=== PATIENT | female | born 1965 | race Caucasian/White ===

== ENCOUNTER → 2021-06-28 13:38 | Outpatient (CLI) | payer OTHER, SELFPAY ==
--- NOTE | ~2021-06-28 | MM_ITS ---
EXAMINATION: MM screening [facility] BI w nathan HISTORY: Screening mammogram TECHNIQUE: Craniocaudal and mediolateral oblique 3-D tomosynthesis images were obtained and synthetic 2-D images were generated. CAD analysis was submitted and interpreted. COMPARISON: No prior mammogram is available for comparison at this institution. BREAST PARENCHYMAL COMPOSITION: There are scattered areas of fibroglandular density. FINDINGS: There is no evidence of suspicious mass, calcification, or architectural distortion to sugg est malignancy in either breast. There has been no suspicious interval change. IMPRESSION: 1. No mammographic evidence of malignancy. 2. Recommend routine screening mammography in one year. BI-RADS Category 1: Negative Reviewed, dictated and finalized at location A. K TAPER
== END ==
PROVIDERS: PCP Physician Assistant; Visit Provider Physician Assistant
DX: Z12.31 Encounter for screening mammogram for malignant neoplasm of breast (principal)
CPT/HCPCS: 77063; 77067

== ENCOUNTER → 2022-03-29 15:09 | Outpatient (CLI) | payer OTHER, SELFPAY ==
--- NOTE | ~2022-03-29 | XR_ITS ---
[[id number] ] INDICATION: Rib pain TECHNIQUE: Frontal projection of the upper ribs, frontal projection of the lower ribs, oblique projec tion of all the ribs, frontal inspiratory chest x-ray for interpretation. FINDINGS: There are no soft tissue abnormality seen. There is linear atelectasis left mid lung. There is an acute left sixth rib fracture. IMPRESSION: 1: Acute left sixth rib fracture. 2: Subsegmental atelectasis left midlung. Reviewed, dictated and finalized at location A.
== END ==
PROVIDERS: PCP Physician Assistant; Visit Provider Physician Assistant
DX: R07.81 Pleurodynia (principal); S22.32XA Fracture of one rib, left side, initial encounter for closed fracture; J98.11 Atelectasis
CPT/HCPCS: 71111

== ENCOUNTER 2022-03-31 18:13 | Emergency (ER) | payer OTHER, SELFPAY ==
--- NOTE | ~2022-03-31 | XR_ITS ---
XR chest 2V 03/31/2022 18:47 Indication: Hemoptysis Procedure: PA and lateral views of the chest Comparison: No prior studies for comparison. Findings: Heart size normal. There is subsegmental atelectasis/scarring in the mid and lower lungs. N o focal pneumonia, edema, pleural effusion or pneumothorax. Impression: 1: Subsegmental atelectasis/scarring in the mid and lower lungs. Reviewed, dictated and finalized at location A. Impression: 1: Subsegmental atelectasis/scarring in the mid and lower lungs.
--- NOTE | ~2022-03-31 | CT_ITS ---
EXAMINATION: CTA chest PE protocol DATE: 03/31/2022 21:03 CDT INDICATION: Hemoptysis. TECHNIQUE: Computed tomographic angiography (CTA) of the chest was performed with 100 mL Omnipaque-35 0 intravenous contrast. The dose-length product was 470.67 mGy-cm. Maximum intensity projection 3D-re constructions of the aorta and other arteries were constructed by the technologist on a separate work station. COMPARISON: Chest x-ray dated. FINDINGS: Study is technically adequate without evidence for pulmonary embolism. Heart size normal. N o evidence for aortic aneurysm. Small hiatal hernia. No significant pleural or pericardial effusion. There is right paratracheal lymphadenopathy measuring 1 cm. Mildly prominent prevascular space lymph nodes. No endobronchial lesions. There are reticulonodular densities in the right lower lobe, suspici ous for infection. The largest nodule measures 7 mm, image 72. There is bilateral lower lobe atelecta sis. There are left renal cysts. IMPRESSION: 1. Reticulonodular densities of the right lower lobe with some areas of tree-in-bud configuration, mo st likely infectious. Largest discrete nodule measures 7 mm. Recommend follow-up CT in 6-8 weeks foll owing appropriate therapy to assess for resolution. 2: Mediastinal lymphadenopathy, most likely reactive. Reviewed, dictated and finalized at location A. IMPRESSION: 1. Reticulonodular densities of the right lower lobe with some areas of tree-in -bud configuration, most likely infectious. Largest discrete nodule measures 7 mm. Recommend follow-up CT in 6-8 weeks following appropriate therapy to assess for resolution. 2: Mediastinal lymphadenopathy, most likely reactive.
[2022-03-31 18:14] VITALS: BP 142/73; PULSE 85; RESP 16; TEMP 36.3; O2SAT 97
--- NOTE | 2022-03-31 18:48 | ED.GENADULT ---
HPI - General Adult General Chief complaint: Unspecified Stated complaint: rib fx. coughing up blood Time Seen by Provider: 03/31/22 18:21 Source: patient and RN notes reviewed Mode of arrival: ambulatory Limitations: no limitations History of Present Illness HPI narrative: This is a 56 year old female who presents for evaluation of hemoptysis. She accidentally fell onto her left side after tripping on a curb. She has been having left rib pain since her fall, so her PCP ordered outpatient rib series 2 days ago. She was found to have 1 left rib fracture. She has been taking ibuprofen and naproxen during the day for her pain , and she takes tramadol at night. Last night, she noticed what looked like blood tinged mucus when she coughed. She thought it was due to red cough drop. Today she has seen speckles of dark brown in her sputum, so she was told to come to ER. She denies shortness of breath, fever, chills, nausea or vomiting. She does not take any blood thinners. She denies epistaxis or blood in her nasal discharge. Related Data Allergies Allergy/AdvReac Type Severity Reaction Status Date / Time No Known Allergies Allergy Mild Verified 11/08/07 20:09 [facility] Past Medical History Medical History (Updated 03/31/22 @ 21:26 by Bhumika Torres MD) Anxiety Hypertension Surgical History Surgical History (Updated 03/31/22 @ 21:23 by Bhumika Torres MD) No pertinent past surgical history Social History Social History (Updated 03/31/22 @ 21:24 by Bhumika Torres MD) Smoking status: Never smoker Exam Narrative: GENERAL: Well-appearing, well-nourished, and in no acute distress. HEAD: Normocephalic, atraumatic EYES: PERRLA and EOMI, conjunctiva clear without discharge NOSE: Nares turbinates edematous , but no epistaxis THROAT:Mucous membranes moist, Oropharynx normal without erythema, exudate, peritonsillar swelling or fluctuance NECK: Supple, without lymphadenopathy or mass RESPIRATORY: No respiratory distress, Airway patent, Respirations non-labored, Clear to auscultation without rales, rhonchi or wheeze; left lateral chest wall tenderness HEART: Regular rate and rhythm. No murmur heard. Normal peripheral pulses. ABDOMEN: Soft, nontender, nondistended, normal active bowel sounds. No masses. No rebound or guarding, No organomegaly. EXTREMITIES: No edema, normal strength with full range of motion. SKIN: Warm, dry, normal color without rash NEURO: Alert and oriented x3. CN 2-12 grossly intact. No focal deficits. PSYCH: Normal mood and affect. Course Reevaluation(s) Reevaluation #1: Patient's CT shows infection so will start antibiotics. Patient is stable for discharge. Date: 03/31/22 Time: 21:24 Vital Signs Vital signs: Vital Signs Temperature 97.4 F L 03/31/22 18:14 Pulse Rate 85 03/31/22 18:14 Respiratory Rate 16 03/31/22 18:14 Blood Pressure 142/73 H 03/31/22 18:14 Pulse Oximetry 97 03/31/22 18:14 Oxygen Delivery Room Air 03/31/22 18:14 Temperature 97.4 F L 03/31/22 18:14 Pulse Rate 85 03/31/22 18:14 Respiratory Rate 16 03/31/22 18:14 Blood Pressure 142/73 H 03/31/22 18:14 Pulse Oximetry 97 03/31/22 18:14 Oxygen Delivery Room Air 03/31/22 18:14 Medical Decision Making Vital Signs Vital Signs: Vital Signs Temperature 97.4 F L 03/31/22 18:14 Pulse Rate 85 03/31/22 18:14 Respiratory Rate 16 03/31/22 18:14 Blood Pressure 142/73 H 03/31/22 18:14 Pulse Oximetry 97 03/31/22 18:14 Oxygen Delivery Room Air 03/31/22 18:14 Temperature 97.4 F L 03/31/22 18:14 Pulse Rate 85 03/31/22 18:14 Respiratory Rate 16 03/31/22 18:14 Blood Pressure 142/73 H 03/31/22 18:14 Pulse Oximetry 97 03/31/22 18:14 Oxygen Delivery Room Air 03/31/22 18:14 Lab Data Lab results reviewed: Yes I reviewed the patient's lab results. Result diagrams: 03/31/22 18:52 03/31/22 18:52 Labs: Lab Resu
[2022-03-31 19:02] LABS: Basophils Absolute Auto 0.1 K/mm3 (0.0-0.1); Basophils Percent Auto 0.7 % (0.2-1.2); Eosinophils Absolute Auto 0.3 K/mm3 (0-0.3); Eosinophils Percent Auto 3.4 % (0-4.4); Hematocrit 41.5 % (37.0-47.0); Hemoglobin 12.9 g/dL (12.0-15.0); Immature Granulocyte Absolute 0.06 K/mm3 (0.00-0.031); Immature Granulocyte Percent A 0.7 % (0-0.5); Lymphocytes Absolute Auto 2.36 K/mm3 (0.9-3.2); Lymphocytes Percent Auto 26.7 % (18.3-44.2); Mean Corpuscular HGB Conc 31.1 g/dl (32-36); Mean Corpuscular Hemoglobin 27.7 pg (26-34); Mean Corpuscular Volume 89.1 fl (80-100); Mean Platelet Volume 9.4 fl (7.4-10.4); Monocytes Absolute Auto 0.8 K/mm3 (0.1-0.6); Monocytes Percent Auto 9.2 % (2.6-8.5); Neutrophils Absolute Auto 5.3 K/mm3 (1.3-6.7); Neutrophils Percent Auto 59.3 % (45.5-73.1); Platelet Count Result 357 k/mm3 (150-375); Red Blood Count 4.66 M/mm3 (4.2-5.4); Red Cell Distribution Width 16.9 % (11.5-14.5); White Blood Count 8.9 K/mm3 (4.5-10.0)
[2022-03-31 19:12] LABS: Alanine Aminotransferase 24 U/L (6-35); Albumin Level 4.4 g/dL (3.5-5.1); Alkaline Phosphatase 119 U/L (38-126); Anion Gap 8 mmol/L (8-16); Aspartate Amino Transferase 33 U/L (14-36); Bilirubin,Total 0.5 mg/dL (0.2-1.3); Blood Urea Nitrogen 18 mg/dL (7-17); Calcium 8.9 mg/dL (8.4-10.2); Carbon Dioxide 26 mmol/L (22-30); Chloride 107 mmol/L (98-107); Estimated CRCL calculation 78 ml/min; Estimated Glomerular Filt Rate > 60; Glucose 111 mg/dL (65-110); Potassium 3.9 mmol/L (3.4-5.0); Sodium 141 mmol/L (137-145)
[2022-03-31 20:02] LABS: INR 1.1; Partial Thromboplastin Time 26.3 SECONDS (22.3-36.8); Prothrombin Time 13.8 Seconds (11.1-14.7)
[2022-03-31] MEDS: DOXYCYCLINE HYCLATE 100 MG TABLET PO (21:39)
[2022-03-31 21:49] VITALS: BP 144/98; PULSE 78; RESP 16; TEMP 36.4; O2SAT 98
== END 2022-03-31 21:51 | disposition home or self-care (01) ==
PROVIDERS: Emergency Provider General Practice; PCP Physician Assistant
DX: J18.9 Pneumonia, unspecified organism (principal); R04.2 Hemoptysis; S22.32XD Fracture of one rib, left side, subsequent encounter for fracture with routine healing; W10.1XXD Fall (on)(from) sidewalk curb, subsequent encounter; R91.8 Other nonspecific abnormal finding of lung field
CPT/HCPCS: 36415; 71046; 71275; 80053; 85025; 85610; 85730; 99284; A9270; Q9967

== ENCOUNTER 2023-10-19 15:24 | Outpatient (CLI) | payer OTHER, SELFPAY ==
--- NOTE | ~2023-10-19 | XR_ITS ---
EXAMINATION: XR abdomen/kub 1V DATE: 10/19/2023 15:50 INDICATION: Right-sided low back pain. Kidney stone. TECHNIQUE: A supine view of the abdomen on 2 radiographs was obtained. COMPARISON: None. FINDINGS: There are no dilated loops of bowel. There is a small volume of stool in the colon. There a re calcifications in the pelvis on either side measuring up to 2 mm. IMPRESSION: 1. Small bilateral pelvic calcifications, which may be phleboliths. Distal ureteral stone cannot be e xcluded. Reviewed, dictated and finalized at location A. [employer] TECHNICIAN IMPRESSION: 1. Small bilateral pelvic calcifications, which may be phleboliths. Distal uret eral stone cannot be excluded.
== END 2023-10-19 15:25 ==
PROVIDERS: PCP Physician Assistant; Visit Provider Physician Assistant
DX: M54.50 Low back pain, unspecified (principal); N20.0 Calculus of kidney
CPT/HCPCS: 74018